=== PATIENT | female | born 1980 | race Caucasian/White ===

== ENCOUNTER 2021-04-06 16:19 | Emergency (ER) | payer OTHER ==
[~2021-04-06 16:19] MED LIST: BACTRIM DS TAB1 EACH PO; MACROBID 100 M100 MG PO; NORCO 7.5-3251 EACH PO; PHENERGAN 25 MG25 M1 PO; ZOFRAN ODT 4 MG4 MG SL; ZOFRAN4 MG PO
== END 2021-04-06 16:33 | disposition left against medical advice (07) ==
LOC: ER1 16:19
DX: Z53.21 Procedure and treatment not carried out due to patient leaving prior to being seen by health care provider (principal)

== ENCOUNTER 2021-04-06 16:47 | Emergency (ER) | payer OTHER | END 2021-04-06 17:03 | disposition left against medical advice (07) | LOC: ER1 16:47 | DX: Z53.21 Procedure and treatment not carried out due to patient leaving prior to being seen by health care provider (principal) ==

== ENCOUNTER 2021-04-09 16:11 | Emergency (ER) | payer OTHER ==
[2021-04-09 17:03] LABS: HEMOGLOBIN 13.8 gm/dl (12.3-15.3); RED BLOOD COUNT 4.39 M/UL (4.00-5.10); WHITE BLOOD COUNT 8.8 K/UL (4.5-11.0)
[2021-04-09 17:29] LABS: BUN/CREATININE RATIO 22 (0-10)
[2021-04-09] MEDS ORDERED: BUPRENORPHIN-N1 EACH SL (18:36)
[2021-04-09] MEDS ORDERED: SULFAMETHOXAZO1 EACH PO (18:36)
[2021-04-09] MEDS ORDERED: METHOCARBAMOL500 MG PO (18:36)
[2021-04-09] MEDS ORDERED: DULOXETINE HCL30 MG PO (18:37)
[2021-04-09] MEDS ORDERED: IBU800 MG PO (18:38)
[2021-04-09] MEDS ORDERED: LEVETIRACETAM500 MG PO (18:38)
[2021-04-09] MEDS ORDERED: ONDANSETRON ODT4 MG PO (18:38)
[2021-04-09] MEDS ORDERED: WELLBUTRIN XL300 MG PO (18:39)
[2021-04-09] MEDS ORDERED: NARCAN4 MG (18:39)
[2021-04-09] MEDS ORDERED: CLONIDINE HCL0.1 MG PO (18:40)
[2021-04-09] MEDS ORDERED: HYGROTON TAB 2525 MG PO (18:43)
== END 2021-04-09 18:52 | disposition left against medical advice (07) ==
LOC: ER1 16:11 → CDU 18:23 → ER1 18:23 → CDU 18:52
PROVIDERS: Physician Assistant
DX: I16.0 Hypertensive urgency (principal); R07.89 Other chest pain; I10 Essential (primary) hypertension; F17.290 Nicotine dependence, other tobacco product, uncomplicated; Z20.822 Contact with and (suspected) exposure to COVID-19
CPT/HCPCS: 71045; 80053; 82550; 82553; 83874; 84484; 85025; 93005; 99285; G0378; U0002

== ENCOUNTER 2021-05-02 16:35 | Emergency (ER) | payer OTHER ==
[~2021-05-02 16:35] MED LIST changes: +BUPRENORPHIN-N1 EACH SL; +CLONIDINE HCL0.1 MG PO; +DULOXETINE HCL30 MG PO; +HYGROTON TAB 2525 MG PO; +IBU800 MG PO; +LEVETIRACETAM500 MG PO; +METHOCARBAMOL500 MG PO; +NARCAN4 MG; +ONDANSETRON ODT4 MG PO; +SULFAMETHOXAZO1 EACH PO; +WELLBUTRIN XL300 MG PO
[2021-05-02 17:37] LABS: HEMOGLOBIN 14.6 gm/dl (12.3-15.3); RED BLOOD COUNT 4.83 M/UL (4.00-5.10); WHITE BLOOD COUNT 6.9 K/UL (4.5-11.0)
[2021-05-02 17:57] LABS: BUN/CREATININE RATIO 19 (0-10)
[2021-05-02] MEDS ORDERED: LACTULOSE20 GM/30 M PO (20:03)
[2021-05-02] MEDS ORDERED: PREDNISONE20 MG PO (20:03)
[2021-05-02] MEDS ORDERED: METOPROLOL SUCC25 MG PO (20:03)
== END 2021-05-02 20:22 | disposition home or self-care (01) ==
LOC: ER1 16:35
PROVIDERS: Family Medicine
DX: K59.00 Constipation, unspecified (principal); F17.290 Nicotine dependence, other tobacco product, uncomplicated; I10 Essential (primary) hypertension; R30.0 Dysuria; F15.90 Other stimulant use, unspecified, uncomplicated
CPT/HCPCS: 72170; 80048; 81001; 85025; 86140; 93005; 96374; 96375; 99284; J1885; J2930